=== PATIENT | female | born 1950 | race Caucasian/White ===

== ENCOUNTER → 2016-08-01 | Outpatient (REF) ==
[~2016-08-01] MED LIST: ACID REFLUX MED; ACTOS 15MG TAB15 MG PO; ACTOS30 MG PO; ALBUTEROL0.83 MG/ML IH; ALPRAZOLAM PO; ANTIVERT 25MG25 MG PO; ASPI325T6 PO; ASPIRIN 81M81 MG/TA2 PO; BRILINTA90 MG PO; CELEXA 20MG20 MG/TAB PO; CIPRO 500MG TA500 MG PO; CRANBERRY1 CAP PO; FERRO-TIME325 MG PO; FLOMAX 0.40.4 MG/CAP PO; IBU600 MG PO; LASIX 20MG TABL20 MG PO; LEVAQUIN 5500 MG/TA1 PO; LIPITOR 10MG10 MG PO; LIPITOR 40MG TA40 MG PO; LIPITOR 80MG80 MG PO; LISINOPRIL/HCTZ PO; LOPRESSOR 225 MG/TAB PO; MACROBID 1100 MG/CAP PO; NITROSTAT0.4 MG/TAB SL; NORCO 325 MG-51 TAB PO; PLAVIX 75MG TAB75 MG PO; PREDNISONE20 MG PO; PRILOSEC 20MG20 MG PO; PRILOSEC10 MG PO; PROBIOTIC ACID1 EAC3 PO; PROBIOTIC FORMU1 CAP PO; VITAMIN D PO; VITAMIN D1000 IU PO; XANAX 1MG1 MG PO; ZESTRIL 10MG10 MG PO; ZESTRIL 5MG5 MG PO; ZITHROMAX; ZYRTEC 10MG10 MG PO
== END ==
LOC: ZLAB.WCH 15:15
DX: Z01.89 Encounter for other specified special examinations (principal)

== ENCOUNTER → 2016-08-29 | Outpatient (REF) | LOC: ZLAB.WCH 15:00 | DX: Z01.89 Encounter for other specified special examinations (principal) ==

== ENCOUNTER → 2016-09-23 | Outpatient (REF) | LOC: ZLAB.WCH 15:54 | DX: Z01.89 Encounter for other specified special examinations (principal) ==

== ENCOUNTER → 2016-10-10 | Outpatient (CLI) | payer MEDICARE, BC | LOC: COL.RAD 10:41 | DX: N30.21 Other chronic cystitis with hematuria (principal) ==

== ENCOUNTER → 2016-10-11 | Outpatient (REF) | LOC: ZLAB.WCH 10:19 | DX: Z01.89 Encounter for other specified special examinations (principal) ==

== ENCOUNTER → 2016-10-13 | Outpatient (REF) ==
[2016-10-13 15:34] LABS: THYROID STIMULATING HORMONE 1.06 uIU/mL (0.465-4.680)
== END ==
LOC: ZLAB.WCH 14:49
PROVIDERS: Internal Medicine
DX: Z01.89 Encounter for other specified special examinations (principal)

== ENCOUNTER 2016-10-19 10:26 | Inpatient (IN) | payer MEDICARE, BC ==
[~2016-10-19] VITALS: Ht 152.4 cm; Wt 96.9 kg
[~2016-10-19 10:26] MED LIST changes: -ALBUTEROL0.83 MG/ML IH; -ASPI325T6 PO; -FERRO-TIME325 MG PO; -LEVAQUIN 5500 MG/TA1 PO; -MACROBID 1100 MG/CAP PO; -NORCO 325 MG-51 TAB PO; -PREDNISONE20 MG PO
[2016-11-29] VITALS (12 sets, daily range): BP systolic 107–135; BP diastolic 51–64; PULSE 65–88; TEMP 97.8–98.5
[2016-11-29] MEDS ORDERED: LEVAQUIN 5500 MG/TA1 PO (14:23)
[2016-11-29] MEDS ORDERED: VITAMIN D1000 IU PO (14:24)
[2016-11-29] MEDS ORDERED: MACROBID 1100 MG/CAP PO (14:24)
[2016-11-30 04:16] VITALS: BP 143/67; PULSE 90; TEMP 98.5
[2016-11-30 07:19] LABS: HEMATOCRIT 35.8 % (37.0-47.0); HEMOGLOBIN 11.6 g/dl (12.5-16.0)
[2016-11-30 07:47] VITALS: BP 105/83; PULSE 86; TEMP 99
[2016-11-30 12:00] VITALS: BP 131/59; PULSE 83
[2016-11-30 19:45] VITALS: BP 133/51; PULSE 81; TEMP 99.1
[2016-11-30 23:39] VITALS: BP 119/59; PULSE 83; TEMP 99.2
[2016-12-01 03:58] VITALS: BP 140/56; PULSE 88; TEMP 98.8
[2016-12-01 06:17] LABS: HEMATOCRIT 27.7 % (37.0-47.0); HEMOGLOBIN 9.5 g/dl (12.5-16.0)
[2016-12-01 07:26] VITALS: BP 146/62; PULSE 80; TEMP 98.2
[2016-12-01 11:52] VITALS: BP 124/78; PULSE 87
[2016-12-01 16:14] VITALS: BP 154/78; PULSE 88
[2016-12-01 20:26] VITALS: BP 147/55; PULSE 100; TEMP 99.1
[2016-12-01 21:46] LABS: PH 5 (5-8); SQUAMOUS EPITHELIAL None Seen /hpf; URINE APPEARANCE Clear; URINE BACTERIA None Seen /hpf; URINE BILIRUBIN Negative (NEGATIVE); URINE BLOOD 1+ (NEGATIVE); URINE COLOR Yellow; URINE GLUCOSE Negative (NEGATIVE); URINE KETONE Negative (NEGATIVE); URINE RBC 0-2 /hpf; URINE UROBILINOGEN Negative (NEGATIVE); URINE WBC 0-2 /hpf
[2016-12-01 22:02] LABS: BASO % 0.2 % (0.0-2.0); GRAN # 10.6 (1.4-6.5); GRAN % 85.1 % (42.2-75.2); LYMPH # 0.5 (1.2-3.4); LYMPH % 3.7 % (20.0-51.0); MEAN CELL VOLUME 87 fl (80.0-100.0); MEAN CORPUSCULAR HGB CONC 36 g/dl (33.0-37.0); MEAN PLATELET VOLUME 9.8 fl (7.4-10.4); MONO # 1.3 (0.1-0.6); MONO % 10.3 % (1.7-9.3); PLATELET COUNT 135 K/mm3 (130-400); RED BLOOD COUNT 2.92 M/mm3 (4.10-5.30); REDCELL DISTRIBUTION WIDTH-CV 12.9 % (11.5-14.5); WHITE BLOOD COUNT 12.5 K/mm3 (4.8-10.8)
[2016-12-01 22:03] LABS: HEMATOCRIT 25.5 % (37.0-47.0); HEMOGLOBIN 9.1 g/dl (12.5-16.0); MEAN CORPUSCULAR HEMOGLOBIN 31 pg (27.0-31.0)
[2016-12-01 22:13] LABS: ADJUSTED CALCIUM 8.7 mg/dL (8.4-10.2); ALBUMIN 3.2 gm/dL (3.5-5.0); BILIRUBIN,TOTAL 1.5 mg/dL (0.0-1.0); CALCIUM 8.1 mg/dL (8.4-10.2); CREATININE, serum 0.83 mg/dL (0.52-1.25); POTASSIUM 3.5 mmol/L (3.4-5.0); TOTAL PROTEIN 5.9 gm/dL (6.4-8.2)
[2016-12-01] MEDS ORDERED: ASPI325T6 PO (22:21)
[2016-12-01 22:55] LABS: MAGNESIUM 1.3 mg/dL (1.6-2.3); PHOSPHOROUS 1.8 mg/dL (2.5-4.5)
[2016-12-01 23:51] LABS: URIC ACID 6.1 mg/dL (2.5-6.2)
[2016-12-02] VITALS (7 sets, daily range): BP systolic 100–138; BP diastolic 41–75; PULSE 73–96; TEMP 96.9–99.2
[2016-12-02 00:01] LABS: THYROID STIMULATING HORMONE 0.48 uIU/mL (0.465-4.680)
[2016-12-02 04:17] LABS: HEMATOCRIT 26.1 % (37.0-47.0); HEMOGLOBIN 9.1 g/dl (12.5-16.0)
[2016-12-02 04:33] LABS: CALCIUM 8.4 mg/dL (8.4-10.2); CREATININE, serum 0.74 mg/dL (0.52-1.25); PHOSPHOROUS 2.9 mg/dL (2.5-4.5); POTASSIUM 4.1 mmol/L (3.4-5.0)
[2016-12-02 10:37] LABS: CALCIUM 8.3 mg/dL (8.4-10.2); CREATININE, serum 0.79 mg/dL (0.52-1.25); POTASSIUM 3.6 mmol/L (3.4-5.0)
[2016-12-02 16:12] LABS: CALCIUM 8.4 mg/dL (8.4-10.2); CREATININE, serum 0.87 mg/dL (0.52-1.25); POTASSIUM 3.5 mmol/L (3.4-5.0)
[2016-12-02 22:09] LABS: CALCIUM 8.1 mg/dL (8.4-10.2); CREATININE, serum 0.87 mg/dL (0.52-1.25); POTASSIUM 3.4 mmol/L (3.4-5.0)
[2016-12-03 01:27] LABS: URINE 24 HOUR CREATININE 0.9 gm/24 hr (0.8-1.8)
[2016-12-03 04:00] VITALS: BP 124/58; PULSE 91; TEMP 98
[2016-12-03 04:53] LABS: CALCIUM 8.3 mg/dL (8.4-10.2); CREATININE, serum 0.82 mg/dL (0.52-1.25); POTASSIUM 3.6 mmol/L (3.4-5.0)
[2016-12-03 08:15] VITALS: BP 116/73; PULSE 79; TEMP 98
[2016-12-03 10:35] LABS: PH 7 (5-8); SQUAMOUS EPITHELIAL 0-2 /hpf; URINE APPEARANCE Clear; URINE BACTERIA Rare /hpf; URINE BILIRUBIN Negative (NEGATIVE); URINE BLOOD 2+ (NEGATIVE); URINE COLOR Yellow; URINE GLUCOSE Negative (NEGATIVE); URINE KETONE Negative (NEGATIVE); URINE RBC 0-2 /hpf; URINE UROBILINOGEN Negative (NEGATIVE)
[2016-12-03 11:20] LABS: CREATININE, serum 0.76 mg/dL (0.52-1.25); POTASSIUM 3.6 mmol/L (3.4-5.0)
[2016-12-03 12:00] VITALS: BP 128/63; PULSE 72; TEMP 98.4
[2016-12-03 16:02] VITALS: BP 122/64; PULSE 77; TEMP 98.5
[2016-12-03 19:57] VITALS: BP 117/64; PULSE 56; TEMP 97.6
[2016-12-03 22:35] LABS: CREATININE, serum 0.91 mg/dL (0.52-1.25)
[2016-12-03 23:52] VITALS: BP 110/62; PULSE 73; TEMP 97.8
[2016-12-04 04:13] VITALS: BP 114/62; PULSE 62; TEMP 97.6
[2016-12-04 09:32] VITALS: BP 120/64; PULSE 59; TEMP 98.2
[2016-12-04 10:59] LABS: BASO % 0.1 % (0.0-2.0); GRAN # 6.2 (1.4-6.5); GRAN % 84.3 % (42.2-75.2); LYMPH # 0.4 (1.2-3.4); LYMPH % 5.8 % (20.0-51.0); MEAN CORPUSCULAR HGB CONC 33 g/dl (33.0-37.0); MEAN PLATELET VOLUME 10.4 fl (7.4-10.4); MONO # 0.6 (0.1-0.6); MONO % 8.7 % (1.7-9.3); PLATELET COUNT 213 K/mm3 (130-400); RED BLOOD COUNT 2.58 M/mm3 (4.10-5.30); REDCELL DISTRIBUTION WIDTH-CV 13.5 % (11.5-14.5); WHITE BLOOD COUNT 7.4 K/mm3 (4.8-10.8)
[2016-12-04 11:02] LABS: HEMATOCRIT 23.8 % (37.0-47.0); HEMOGLOBIN 7.8 g/dl (12.5-16.0); MEAN CELL VOLUME 92 fl (80.0-100.0); MEAN CORPUSCULAR HEMOGLOBIN 30 pg (27.0-31.0)
[2016-12-04 11:20] LABS: CALCIUM 8.1 mg/dL (8.4-10.2); CREATININE, serum 1.06 mg/dL (0.52-1.25); POTASSIUM 3.8 mmol/L (3.4-5.0)
[2016-12-04] MEDS ORDERED: NORCO 325 MG-51 TAB PO (12:27)
[2016-12-04] MEDS ORDERED: PREDNISONE20 MG PO (12:27)
[2016-12-04] MEDS ORDERED: ALBUTEROL0.83 MG/ML IH (12:27)
[2016-12-04] MEDS ORDERED: FERRO-TIME325 MG PO (12:54)
[2016-12-04 13:14] VITALS: BP 137/71; PULSE 77; TEMP 97.7
[2016-12-04 13:43] VITALS: BP 137/71; PULSE 77; TEMP 97.7
[2016-12-06 09:17] LABS: ADRENOCORTICOTROPIC HORMONE 15 pg/mL (())
== END 2016-12-04 14:30 | disposition swing bed (61) | DRG 470 ==
LOC: JCC 11-29 06:30 → SURG 12-02 23:35
PROVIDERS: Family Medicine; Nurse Practitioner Family; Orthopaedic Surgery Sports Medicine
PROC: 0SRC0J9 Replacement of Right Knee Joint with Synthetic Substitute, Cemented, Open Approach (ICD-10-PCS; principal; 2016-11-29 10:30)
DX: M17.11 Unilateral primary osteoarthritis, right knee (principal); E87.1 Hypo-osmolality and hyponatremia; N39.0 Urinary tract infection, site not specified; F05 Delirium due to known physiological condition; I25.10 Atherosclerotic heart disease of native coronary artery without angina pectoris; I10 Essential (primary) hypertension; E11.9 Type 2 diabetes mellitus without complications; Z95.5 Presence of coronary angioplasty implant and graft; E83.42 Hypomagnesemia; E83.39 Other disorders of phosphorus metabolism; B96.20 Unspecified Escherichia coli [E. coli] as the cause of diseases classified elsewhere; J20.8 Acute bronchitis due to other specified organisms; T40.2X5A Adverse effect of other opioids, initial encounter; D50.0 Iron deficiency anemia secondary to blood loss (chronic); F03.90 Unspecified dementia, unspecified severity, without behavioral disturbance, psychotic disturbance, mood disturbance, and anxiety
CPT/HCPCS: 99222; 99232-AI; 99239; A9284; C1713; C1776; J0690; J0696; J1170; J1815; J1885; J2250; J2270; J2274; J2405; J2704; J2795; J2930; J3010; J3475; J7030; J7040

== ENCOUNTER → 2016-10-25 | Outpatient (CLI) | payer MEDICARE, BC ==
[~2016-10-25] MED LIST changes: +ALBUTEROL0.83 MG/ML IH; +ASPI325T6 PO; +FERRO-TIME325 MG PO; +LEVAQUIN 5500 MG/TA1 PO; +MACROBID 1100 MG/CAP PO; +NORCO 325 MG-51 TAB PO; +PREDNISONE20 MG PO
== END ==
LOC: COL.RAD 14:23
DX: Z53.9 Procedure and treatment not carried out, unspecified reason (principal)

== ENCOUNTER → 2016-10-26 | Outpatient (CLI) | payer MEDICARE, BC | LOC: COL.RAD 10:23 | DX: Z01.818 Encounter for other preprocedural examination (principal); M17.11 Unilateral primary osteoarthritis, right knee ==

== ENCOUNTER → 2016-11-24 | Outpatient (CLI) | payer MEDICARE, BC | LOC: COL.LAB 10:33 | DX: Z96.651 Presence of right artificial knee joint (principal) ==

== ENCOUNTER 2017-07-25 14:30 | Outpatient (RCR) | payer MEDICARE, BC | END 2017-09-27 | disposition home or self-care (01) | LOC: MKS.ESL.PT | DX: G62.9 Polyneuropathy, unspecified (principal) ==

== ENCOUNTER → 2017-07-31 | Outpatient (REF) ==
[2017-07-31 19:09] LABS: THYROID STIMULATING HORMONE 1.46 uIU/mL (0.465-4.680)
== END ==
LOC: ZLAB.WCH 18:15
PROVIDERS: Internal Medicine
DX: Z01.89 Encounter for other specified special examinations (principal)

== ENCOUNTER 2017-08-08 14:00 | Outpatient (RCR) | payer MEDICARE, BC | END 2017-09-27 | disposition home or self-care (01) | LOC: MKS.ESL.PT | DX: G62.9 Polyneuropathy, unspecified (principal) ==

== ENCOUNTER 2018-01-04 07:26 | Day surgery (SDC) | payer MEDICARE, BC ==
[~2018-01-04] VITALS: Ht 152.4 cm; Wt 90.9 kg
[2018-01-04] VITALS (11 sets, daily range): BP systolic 93–133; BP diastolic 52–80; PULSE 61–88; TEMP 98
[2018-01-04] MEDS ORDERED: ASPIRIN 81M81 MG/TA2 PO (08:15)
[2018-01-04] MEDS ORDERED: ACIDOPHILIS PO (08:18)
[2018-01-04] MEDS ORDERED: MULTI VITAMINS1 TAB PO (08:19)
[2018-01-04] MEDS ORDERED: CRANBERRY FRUI405 MG PO (08:19)
[2018-01-04] MEDS ORDERED: BENADRYL25 M2 PO (08:20)
[2018-01-04] MEDS ORDERED: TYLENOL 500MG500 MG PO (08:20)
[2018-01-04 08:50] LABS: HEMATOCRIT 37.6 % (37.0-47.0); HEMOGLOBIN 12.1 g/dl (12.5-16.0); MEAN CELL VOLUME 94 fl (80.0-100.0); MEAN CORPUSCULAR HEMOGLOBIN 30 pg (27.0-31.0); MEAN CORPUSCULAR HGB CONC 32 g/dl (33.0-37.0); MEAN PLATELET VOLUME 10.3 fl (7.4-10.4); PLATELET COUNT 176 K/mm3 (130-400); RED BLOOD COUNT 4.02 M/mm3 (4.10-5.30); REDCELL DISTRIBUTION WIDTH-CV 13.2 % (11.5-14.5)
[2018-01-04 08:58] LABS: INR 1.1 (0.8-3.0)
[2018-01-04 09:08] LABS: CALCIUM 9.5 mg/dL (8.4-10.2); CREATININE, serum 1.11 mg/dL (0.52-1.25); POTASSIUM 4.3 mmol/L (3.4-5.0)
== END 2018-01-04 15:34 | disposition home or self-care (01) ==
LOC: COL.CAR 07:26
PROVIDERS: Internal Medicine Cardiovascular Disease
DX: I27.20 Pulmonary hypertension, unspecified (principal); I25.9 Chronic ischemic heart disease, unspecified; I10 Essential (primary) hypertension; E78.5 Hyperlipidemia, unspecified; E11.9 Type 2 diabetes mellitus without complications; G47.33 Obstructive sleep apnea (adult) (pediatric); Z88.5 Allergy status to narcotic agent; Z91.011 Allergy to milk products; Z95.5 Presence of coronary angioplasty implant and graft; Z79.82 Long term (current) use of aspirin; Z79.02 Long term (current) use of antithrombotics/antiplatelets; Z86.79 Personal history of other diseases of the circulatory system; Z82.49 Family history of ischemic heart disease and other diseases of the circulatory system; Z80.6 Family history of leukemia; Z80.41 Family history of malignant neoplasm of ovary; Z80.8 Family history of malignant neoplasm of other organs or systems
CPT/HCPCS: J2250; J3010; Q9967

== ENCOUNTER → 2018-02-23 | Outpatient (REF) ==
[~2018-02-23] MED LIST changes: +ACIDOPHILIS PO; +BENADRYL25 M2 PO; +CRANBERRY FRUI405 MG PO; +MULTI VITAMINS1 TAB PO; +TYLENOL 500MG500 MG PO
== END ==
LOC: ZLAB.WCH 16:08
DX: Z01.89 Encounter for other specified special examinations (principal)

== ENCOUNTER → 2018-05-14 | Outpatient (REF) | LOC: ZLAB.WCH 16:31 | DX: Z01.89 Encounter for other specified special examinations (principal) ==

== ENCOUNTER → 2018-08-06 | Outpatient (REF) | LOC: ZLAB.WCH 16:51 | DX: Z01.89 Encounter for other specified special examinations (principal) ==

== ENCOUNTER 2018-10-02 06:42 | Day surgery (SDC) | payer MEDICARE, BC ==
[~2018-10-02] VITALS: Ht 152.4 cm; Wt 88.0 kg
[2018-10-02] VITALS (12 sets, daily range): BP systolic 89–136; BP diastolic 45–75; PULSE 57–76; TEMP 98.3
[~2018-10-02 06:42] MED LIST changes: -CRANBERRY FRUI405 MG PO; +CRANBERRY FRUI425 MG PO
[2018-10-02 07:20] LABS: PROTHROMBIN TIME 11.7 SECONDS (9.7-12.8)
[2018-10-02 07:23] LABS: HEMATOCRIT 40.1 % (37.0-47.0); HEMOGLOBIN 12.9 g/dl (12.5-16.0); MEAN CELL VOLUME 93 fl (80.0-100.0); MEAN CORPUSCULAR HEMOGLOBIN 30 pg (27.0-31.0); MEAN CORPUSCULAR HGB CONC 32 g/dl (33.0-37.0); PLATELET COUNT 168 K/mm3 (130-400); RED BLOOD COUNT 4.32 M/mm3 (4.10-5.30); REDCELL DISTRIBUTION WIDTH-CV 13.4 % (11.5-14.5)
[2018-10-02 07:25] LABS: CALCIUM 9.6 mg/dL (8.4-10.2); CREATININE, serum 1.04 mg/dL (0.52-1.25); POTASSIUM 4.6 mmol/L (3.4-5.0)
[2018-10-02] MEDS ORDERED: NORVASC2.5 MG PO (08:17)
--- NOTE | 2018-10-02 09:08 | NUR ---
ALL MEDS GIVEN WITH VERBAL ORDER FROM MD KEATING. SEE MERGE FOR MEDICATION ADMIN TIMES. SEE MERGE FOR MODERATE SEDATION AND RASS ASSESSMENTS DURING AND POST PROCEDURE.
--- NOTE | 2018-10-02 10:35 | NUR ---
Jessicahelper animal laboratory nurse in to assessed pt dressing.Scant drainage observed on gauze,No edema observed at site,Edges marked at drainage.
--- NOTE | 2018-10-02 12:26 | NUR ---
Jessica,greenhouse laborer nurse in to assess dressing.No further drainage noted at this time.
--- NOTE | 2018-10-02 13:53 | NUR ---
Pt ambulated to bathroom.No further bleeding at site observed,still scant drainage with boarders marked.
--- NOTE | 2018-10-02 13:53 | NUR ---
Discharge instructions given to pt.Pt verbalizes understanding.INT removed,catheter tip intact.
--- NOTE | 2018-10-02 14:00 | NUR ---
Pt escortedout via wheelchair by this nurse.
== END 2018-10-02 14:48 | disposition home or self-care (01) ==
LOC: COL.CAR 06:42
PROVIDERS: Internal Medicine Cardiovascular Disease
DX: I25.10 Atherosclerotic heart disease of native coronary artery without angina pectoris (principal); R94.39 Abnormal result of other cardiovascular function study; E11.9 Type 2 diabetes mellitus without complications; E78.5 Hyperlipidemia, unspecified; I10 Essential (primary) hypertension; G47.33 Obstructive sleep apnea (adult) (pediatric); I27.20 Pulmonary hypertension, unspecified; Z88.5 Allergy status to narcotic agent; Z88.2 Allergy status to sulfonamides; Z88.1 Allergy status to other antibiotic agents; Z91.011 Allergy to milk products
CPT/HCPCS: J1644; J2250; J3010; Q9967

== ENCOUNTER → 2018-10-16 | Outpatient (CLI) | payer MEDICARE, BC ==
[~2018-10-16] MED LIST changes: +NORVASC2.5 MG PO
== END ==
LOC: MHCPAIN 08:07
DX: G89.29 Other chronic pain (principal); M54.12 Radiculopathy, cervical region; M47.812 Spondylosis without myelopathy or radiculopathy, cervical region; R51 Headache; M54.81 Occipital neuralgia
CPT/HCPCS: G0463

== ENCOUNTER → 2018-10-30 | Outpatient (REF) | LOC: ZLAB.WCH 14:13 | DX: Z01.89 Encounter for other specified special examinations (principal) ==

== ENCOUNTER → 2018-11-01 | Outpatient (CLI) | payer MEDICARE, BC | LOC: MHCPAIN 08:47 | DX: M47.812 Spondylosis without myelopathy or radiculopathy, cervical region (principal); M54.12 Radiculopathy, cervical region; M50.90 Cervical disc disorder, unspecified, unspecified cervical region | CPT/HCPCS: J1100; Q9967 ==

== ENCOUNTER → 2018-11-13 | Outpatient (CLI) | payer MEDICARE, BC | LOC: MHCPAIN 09:59 | DX: G89.29 Other chronic pain (principal); M54.12 Radiculopathy, cervical region; M54.81 Occipital neuralgia; R51 Headache; M47.812 Spondylosis without myelopathy or radiculopathy, cervical region | CPT/HCPCS: G0463 ==

== ENCOUNTER → 2019-01-01 | Outpatient (CLI) | payer MEDICARE, BC | LOC: MHCPAIN 09:05 | DX: G89.29 Other chronic pain (principal); M54.12 Radiculopathy, cervical region; M54.81 Occipital neuralgia; R51 Headache; M47.812 Spondylosis without myelopathy or radiculopathy, cervical region | CPT/HCPCS: G0463 ==

== ENCOUNTER → 2019-01-17 | Outpatient (CLI) | payer MEDICARE, BC | LOC: MHCPAIN 12:54 | DX: M47.812 Spondylosis without myelopathy or radiculopathy, cervical region (principal); M54.12 Radiculopathy, cervical region | CPT/HCPCS: J1100; Q9967 ==

== ENCOUNTER → 2019-01-30 | Outpatient (CLI) | payer MEDICARE, BC | LOC: MHCPAIN 12:32 | DX: G89.29 Other chronic pain (principal); M54.12 Radiculopathy, cervical region; M54.81 Occipital neuralgia; R51 Headache; M47.812 Spondylosis without myelopathy or radiculopathy, cervical region | CPT/HCPCS: G0463 ==

== ENCOUNTER 2019-12-05 13:44 | Outpatient (CLI) | payer MEDICARE, BC ==
[~2019-12-05] VITALS: Ht 152.4 cm; Wt 91.6 kg
[2019-12-05] VITALS (7 sets, daily range): BP systolic 102–136; BP diastolic 56–72; PULSE 64–80
[~2019-12-05 13:44] MED LIST changes: +B-121000 MCG PO; +VITAMIN D32000 I1 PO
[2019-12-05] MEDS ORDERED: PROTONIX20 MG PO (14:07)
[2019-12-05] MEDS ORDERED: PROZAC 10MG10 MG PO (14:08)
[2019-12-05] MEDS ORDERED: IMDUR 30MG30 MG/TAB PO (14:08)
[2019-12-05] MEDS ORDERED: NATURE'S BLE1000 MCG (14:11)
--- NOTE | 2019-12-05 16:35 | NUR ---
Discharge instructions given to pt.Pt verbalizes understanding.Pt escorted out via wheelchair by this nurse.
== END 2019-12-05 16:59 | disposition home or self-care (01) ==
LOC: COL.RAD 13:44
DX: M54.12 Radiculopathy, cervical region (principal); M48.02 Spinal stenosis, cervical region; Z98.1 Arthrodesis status
CPT/HCPCS: Q9967

== ENCOUNTER → 2020-05-07 | Outpatient (CLI) | payer MEDICARE, BC ==
[~2020-05-07] MED LIST changes: +IMDUR 30MG30 MG/TAB PO; +NATURE'S BLE1000 MCG; +PROTONIX20 MG PO; +PROZAC 10MG10 MG PO
== END ==
LOC: ZCOL.LAB 19:41
DX: R06.02 Shortness of breath (principal)

== ENCOUNTER → 2020-07-07 | Outpatient (REF) | LOC: ZLAB.WCH 20:00 | DX: Z01.89 Encounter for other specified special examinations (principal) ==

== ENCOUNTER → 2020-07-11 | Outpatient (REF) | LOC: ZLAB.WCH 14:38 | DX: Z01.89 Encounter for other specified special examinations (principal) ==

== ENCOUNTER → 2022-09-08 | Outpatient (CLI) | payer MEDICARE, BC | LOC: COL.RAD 08:09 | DX: M48.062 Spinal stenosis, lumbar region with neurogenic claudication (principal); M47.26 Other spondylosis with radiculopathy, lumbar region; M47.27 Other spondylosis with radiculopathy, lumbosacral region; Z98.1 Arthrodesis status | CPT/HCPCS: A9575 ==

== ENCOUNTER → 2022-09-13 | Outpatient (CLI) | payer MEDICARE, BC | LOC: COL.RAD 07:49 | DX: M50.11 Cervical disc disorder with radiculopathy, high cervical region (principal); M50.123 Cervical disc disorder at C6-C7 level with radiculopathy; M47.22 Other spondylosis with radiculopathy, cervical region; M48.02 Spinal stenosis, cervical region; Z98.1 Arthrodesis status | CPT/HCPCS: A9575 ==